=== PATIENT | female | born 1990 | race Caucasian/White ===

== ENCOUNTER 2017-08-22 22:34 | Emergency (ER) | payer BC, OTHER ==
[~2017-08-22] VITALS: Ht 157.5 cm; Wt 65.0 kg
[~2017-08-22 22:34] MED LIST: ADDE5TAB PO; CLIN150 PO; TRAM50 PO
[2017-08-22 23:26] VITALS: BP 146/85; PULSE 112; RESP 18; TEMP 98.5; O2SAT 99
[2017-08-22] MEDS ORDERED: ADDE20 PO (23:29)
[2017-08-23] MEDS ORDERED: ALPRAZolam 0.5 MG TAB PO ONE (00:45)
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
[2017-08-23 02:26] LABS: AUTOMATED NEUTROPHIL # 3.7 TH/MM3 (1.8-7.7); BASOPHIL # 0.1 TH/MM3 (0-0.2); BASOPHIL % 0.9 % (0.0-2.0); EOSINOPHIL # 0.4 TH/MM3 (0-0.4); EOSINOPHIL % 4.3 % (0.0-4.0); HEMATOCRIT 47.2 % (35.0-46.0); HEMO FLAGS DIFF FINAL; LYMPH % 47.2 % (9.0-44.0); LYMPHOCYTE # 4.1 TH/MM3 (1.0-4.8); MEAN CELL VOLUME 99.3 FL (80.0-100.0); MEAN CORPUSCULAR HGB CONC 34.2 % (32.0-36.0); MONO % 5.3 % (0.0-8.0); NEUT % 42.3 % (16.0-70.0); PLATELET COUNT 209 TH/MM3 (150-450); RED BLOOD COUNT 4.75 MIL/MM3 (4.00-5.30); RED CELL DISTRIBUTION WIDTH 12.7 % (11.6-17.2); WHITE BLOOD COUNT 8.6 TH/MM3 (4.0-11.0)
[2017-08-23 02:53] LABS: ALT (GPT) 23 U/L (10-53); ANION GAP 8 MEQ/L (5-15); AST (GOT) 13 U/L (15-37); BICARBONATE 28.3 MEQ/L (21.0-32.0); BLOOD UREA NITROGEN 5 MG/DL (7-18); CHLORIDE 110 MEQ/L (98-107); GLOMERULAR FILTRATION RATE 97 ML/MIN (>89); SODIUM (NA) 146 MEQ/L (136-145)
[2017-08-23 02:55] LABS: ALKALINE PHOSPHATASE 64 U/L (45-117); TOTAL BILIRUBIN ADULT 0.3 MG/DL (0.2-1.0)
[2017-08-23 03:03] LABS: ALCOHOL 226 MG/DL (0-5)
[2017-08-23 07:11] VITALS: BP 128/76; PULSE 89; RESP 16; O2SAT 100
[2017-08-23 09:19] VITALS: BP 122/74; PULSE 88; RESP 15; O2SAT 100
[2017-08-23 12:27] VITALS: BP 110/75; PULSE 100; RESP 20; O2SAT 98
--- NOTE | 2017-08-23 13:26 | PD ---
History of Present Illness Chief Complaint: Psychiatric Symptoms Time Seen by Provider: 13:10 Travel History International Travel<30 Days: No Contact w/Intl Traveler<30days: No Known affected area: No Legal Status Legal Status: Wharton Act Wharton Act Signed By: Nyla Mejia Wharton Act Comment: Signed by [facility] Elli Clement #[id number]. History of Present Illness: History of Present Illness HPI Patient is a 27-year-old female with no previous psychiatric history who presents to the emergency department under Wharton act initiated by MADAI Per the Wharton act report patient was upset, intoxicated appearing and made suicidal statements. Patient states that she got into an argument with her boyfriend, she then called one of her friends upset and made a threatening statement. Her friend called the police out of concern since the patient had been drinking and she wanted to leave in her car. She admits to drinking alcohol this evening and on arrival her BAL was 226. She did not make any attempts at harming herself. No previous contact with [facility] psychiatric dept . Patient is now clinically sober. She is calm and cooperative. States " My friend did me a favor by calling the police. I was drunk and I wanted to drive. I'm glad she did. I am not suicidal or homicidal. Patient is not psychotic, not manic, Father is here to pick her up. PFSH Past Medical History ADHD: Yes Autoimmune Disease: No Anxiety: No Depression: No Cardiovascular Problems: No Genitourinary: No Musculoskeletal: No Neurologic: No Psychiatric: No Respiratory: No Immunizations Current: Yes Tetanus Vaccination: < 5 Years Influenza Vaccination: No ?: Not LMP: 08/04/2017 Past Surgical History Oral Surgery: Yes Tonsillectomy: Yes Other Surgery: Yes Psychiatric History Psychiatric History Hx Psychiatric Treatment: Patient denies any psychiatric tx hx. Per pt, she was seen by a therapist when she was age 5 or 6 because her parents were getting . patietn is prescribed Adderrall. History of Inpatient Treatment: No Guns or firearms in home: Yes (Has a weapon and conceelaed weapon permit) Social History Single, lives with boyfriend. Born and raised in [place]. [id number] grade. Works at [employer]. Hx Alcohol Use: Yes (Weekends) Hx Tobacco Use: Yes (1ppd) Hx Substance Use: Yes (Pt stated that she rarely drinks; Stated that she is Rx' d Adderal. ) Substance Use Type: Alcohol Hx of Substance Use Treatment: No Family Psychiatric History None reported. Allergies-Medications (Allergen,Severity, Reaction): Coded Allergies: egg (Unverified Allergy, Severe, THROAT SWELLS, 08/22/17) peanut (Unverified Allergy, Severe, ANAPHALAXIS, 08/22/17) penicillin G (Unverified Allergy, Severe, ANAPHALAXIS, 08/22/17) Reported Meds & Prescriptions Reported Meds & Active Scripts Active Reported Adderall (Amphetamine-Dextroamphetamine) 20 Mg Tab 35 Mg PO DAILY Avoid late evening doses. Space doses at least 4 to 6 hours if more than once/day dosing. Review of Systems Constitutional: DENIES: Diaphoretic episodes, Fatigue, Fever, Weight gain, Weight loss, Chills, Dizziness, Change in appetite, Night Sweats Except as stated in HPI: all other systems reviewed are Neg Mental Status Examination Appearance: Appropriate Consciousness: Alert Orientation: x4 Motor Activity: Normal gait Speech: Unremarkable Language: Adequate Fund of Knowledge: Adequate Attention and Concentration: Adequate Memory: Unremarkable Mood: Appropriate Affect: Appropriate Thought Process & Associations: Intact, Logical, Goal directed Thought Content: Appropriate Hallucination Type: None Delusion Type: None Suicidal Ideation: No Suicidal Plan: No Suicidal Intention: No Homicidal Ideation: No Homicidal Plan: No Homicidal Intention: No Insight: Adequate Judgment: Adequate [facility] Medical Decision Making Medical Record Reviewed: Yes Assessment/Plan Patient with no previous psychiatric history who while intoxicated was placed under a Wharton act after her friend reported she told her she wanted to kill herself. The patient denies any suicidal or homicidal ideation, intent or plan once she is clinically sober. She denies that she drinks on a daily basis. She presents no unstable mental illness as per the Wharton act. She does not meet Wharton act criteria. Psychiatrically clear for discharge. Orders Orders Complete Blood Count With Diff (08/22/17 23:22) Comprehensive Metabolic Panel (08/22/17 23:22) Ed Urine Pregnancytest Poc (08/22/17 23:22) Psych Screen (08/22/17 23:22) Drug Screen, Random Urine (08/22/17 23:22) Alcohol (Ethanol) (08/22/17 23:22) Alprazolam (Xanax) (08/23/17 00:45) Diet Regular Basic (08/23/17 Breakfast) Results Vital Signs Date Time Temp Pulse Resp B/P (MAP) Pulse Ox O2 Delivery O2 Flow Rate FiO2 08/23/17 12:27 100 20 110/75 (87) 98 08/23/17 09:19 88 15 122/74 (90) 100 08/23/17 07:11 89 16 128/76 (93) 100 Room Air 08/22/17 23:26 98.5 112 18 146/85 (105) 99 Laboratory Tests Test 08/22/17 23:39 08/23/17 02:12 Urine Opiates Screen NEG Urine Barbiturates Screen NEG Urine Amphetamines Screen POS Urine Benzodiazepines Screen NEG Urine Cocaine Screen NEG Urine Cannabinoids Screen NEG White Blood Count 8.6 Red Blood Count 4.75 Hemoglobin 16.1 Hematocrit 47.2 Mean Corpuscular Volume 99.3 Mean Corpuscular Hemoglobin 34.0 Mean Corpuscular Hemoglobin Concent 34.2 Red Cell Distribution Width 12.7 Platelet Count 209 Mean Platelet Volume 7.5 Neutrophils (%) (Auto) 42.3 Lymphocytes (%) (Auto) 47.2 Monocytes (%) (Auto) 5.3 Eosinophils (%) (Auto) 4.3 Basophils (%) (Auto) 0.9 Neutrophils # (Auto) 3.7 Lymphocytes # (Auto) 4.1 Monocytes # (Auto) 0.5 Eosinophils # (Auto) 0.4 Basophils # (Auto) 0.1 CBC Comment DIFF FINAL Differential Comment Blood Urea Nitrogen 5 Creatinine 0.72 Random Glucose 80 Total Protein 7.3 Albumin 4.1 Calcium Level 8.4 Alkaline Phosphatase 64 Aspartate Amino Transf (AST/SGOT) 13 Alanine Aminotransferase (ALT/SGPT) 23 Total Bilirubin 0.3 Sodium Level 146 Potassium Level 4.0 Chloride Level 110 Carbon Dioxide Level 28.3 Anion Gap 8 Estimat Glomerular Filtration Rate 97 Ethyl Alcohol Level 226 Diagnosis Primary Impression: Medical clearance for psychiatric admission Additional Impression: Acute alcohol intoxication Psychiatrically Cleared: Yes Med/ Other Pt Specific Info: No Meds Exist/No RX given Disposition: 01 DISCHARGE HOME Condition: Stable Problem Qualifiers Additional Impression: Acute alcohol intoxication Qualified Codes: F10.929 - Alcohol use, unspecified with intoxication, unspecified Kandi Corea Aug 23, 2017 13:26
--- NOTE | 2017-08-23 13:34 | PD ---
Physical Exam Time Seen by Provider: 13:32 JUSTA Santana has evaluated the patient, lifted a cracked, and the patient will be discharged. Data Data Last Documented VS Vital Signs Date Time Temp Pulse Resp B/P (MAP) Pulse Ox O2 Delivery O2 Flow Rate FiO2 08/23/17 12:27 100 20 110/75 (87) 98 08/23/17 07:11 Room Air 08/22/17 23:26 98.5 Orders Orders Complete Blood Count With Diff (08/22/17 23:22) Comprehensive Metabolic Panel (08/22/17 23:22) Ed Urine Pregnancytest Poc (08/22/17 23:22) Psych Screen (08/22/17 23:22) Drug Screen, Random Urine (08/22/17 23:22) Alcohol (Ethanol) (08/22/17 23:22) Alprazolam (Xanax) (08/23/17 00:45) Diet Regular Basic (08/23/17 Breakfast) Labs Laboratory Tests Test 08/22/17 23:39 08/23/17 02:12 Urine Opiates Screen NEG Urine Barbiturates Screen NEG Urine Amphetamines Screen POS Urine Benzodiazepines Screen NEG Urine Cocaine Screen NEG Urine Cannabinoids Screen NEG White Blood Count 8.6 TH/MM3 Red Blood Count 4.75 MIL/MM3 Hemoglobin 16.1 GM/DL Hematocrit 47.2 % Mean Corpuscular Volume 99.3 FL Mean Corpuscular Hemoglobin 34.0 PG Mean Corpuscular Hemoglobin Concent 34.2 % Red Cell Distribution Width 12.7 % Platelet Count 209 TH/MM3 Mean Platelet Volume 7.5 FL Neutrophils (%) (Auto) 42.3 % Lymphocytes (%) (Auto) 47.2 % Monocytes (%) (Auto) 5.3 % Eosinophils (%) (Auto) 4.3 % Basophils (%) (Auto) 0.9 % Neutrophils # (Auto) 3.7 TH/MM3 Lymphocytes # (Auto) 4.1 TH/MM3 Monocytes # (Auto) 0.5 TH/MM3 Eosinophils # (Auto) 0.4 TH/MM3 Basophils # (Auto) 0.1 TH/MM3 CBC Comment DIFF FINAL Differential Comment Blood Urea Nitrogen 5 MG/DL Creatinine 0.72 MG/DL Random Glucose 80 MG/DL Total Protein 7.3 GM/DL Albumin 4.1 GM/DL Calcium Level 8.4 MG/DL Alkaline Phosphatase 64 U/L Aspartate Amino Transf (AST/SGOT) 13 U/L Alanine Aminotransferase (ALT/SGPT) 23 U/L Total Bilirubin 0.3 MG/DL Sodium Level 146 MEQ/L Potassium Level 4.0 MEQ/L Chloride Level 110 MEQ/L Carbon Dioxide Level 28.3 MEQ/L Anion Gap 8 MEQ/L Estimat Glomerular Filtration Rate 97 ML/MIN Ethyl Alcohol Level 226 MG/DL MDM Supervised Visit with MIKE: No Narrative Course JUSTA Chau has evaluated the patient, lifted the Akiko act and the patient will be discharged. Patient contracts safety. Denies suicidal or homicidal ideations. Patient will be provided community resource packet to [facility] for follow-up. Has friends and family for support. Patient is medically cleared for discharge. Diagnosis Primary Impression: Medical clearance for psychiatric admission Additional Impression: Acute alcohol intoxication Qualified Codes: F10.929 - Alcohol use, unspecified with intoxication, unspecified Referrals: [facility] (Out patient) [facility] Primary Care Physician Psychiatrist [facility] Patient Instructions: Alcohol Intoxication (ED), General Instructions Additional Instruction: Contract safety to your self and others Stop drinking alcohol Follow-up with psychiatry Follow-up with primary care provider Follow-up with Peña Ng Return to the emergency department immediately with worsening of symptoms Med/Other Pt SpecificInfo: No Meds Exist/No RX given Disposition: 01 DISCHARGE HOME Condition: Stable Yelena Arboleda Aug 23, 2017 13:34
== END 2017-08-23 13:45 | disposition home or self-care (01) ==
LOC: NEDAMB 22:34 → NEPD 08-23 13:45
DX: F10.929 Alcohol use, unspecified with intoxication, unspecified (principal); Y90.7 Blood alcohol level of 200-239 mg/100 ml
CPT/HCPCS: 80053; 80307; 84703; 85025; 99284